=== PATIENT | female | born 1950 | race Caucasian/White ===

== ENCOUNTER → 2021-04-19 | Outpatient (CLI) | payer OTHER ==
--- NOTE | 2021-04-19 10:35 | KCIC ---
EXAM: CT coronary artery calcium screening; radiologist over read. HISTORY: Coronary artery calcium screening. Hyperlipidemia. Hypertension. TECHNIQUE: Computed tomographic images of the chest were obtained without contrast. Multiplanar refor matting was performed. *One or more of the following individualized dose reduction techniques were utilized for this examina tion: 1. Automated exposure control. 2. Adjustment of the mA and/or kV according to patient size. 3. Use of iterative reconstruction technique. COMPARISON: None. FINDINGS: The heart is normal in size. There is calcified atherosclerotic plaque involving the hood ry arteries. There is a mildly ectatic ascending aorta measuring 3.8 cm. There are nonspecific medias tinal lymph nodes. No pathologically enlarged lymph node is seen. There is no infiltrate, pleural eff usion, pneumothorax, or suspicious pulmonary nodule. There is no acute finding involving the upper ab domen. There is a small hepatic cyst. There is no suspicious osseous lesion. Coronary artery calcium score: Left main artery - 0 Left anterior descending - 90 Left circumflex - 119.1 Right coronary artery - 0 Posterior descending artery - 0 TOTAL = 209.1 IMPRESSION: 1. Calcified atherosclerotic plaque involving the coronary arteries. The coronary calcium score is 20 9.1. Moderate plaque is present. 2. Mildly ectatic ascending aorta measuring 3.8 cm. 3. No acute thoracic finding. Electronically signed by: Kimberley Hanna MD (04/19/2021 10:33 AM) [id number]
== END ==
LOC: KCIC CT 09:40
PROVIDERS: ATTEND Family Medicine
DX: I25.10 Atherosclerotic heart disease of native coronary artery without angina pectoris (principal); I77.819 Aortic ectasia, unspecified site; K76.89 Other specified diseases of liver; E78.2 Mixed hyperlipidemia; I10 Essential (primary) hypertension
CPT/HCPCS: 75571